=== PATIENT | male | born 1955 | race Caucasian/White ===

== ENCOUNTER → 2017-08-03 | Day surgery (SDC) | payer OTHER ==
[~2017-08-03] MED LIST: ASA81 MG PO; AZOR 10-40 MG1 EACH PO; BYSTOLIC20 MG PO; CALTRATE 600 +1 EACH PO; CIPRO500 MG PO; FISH OIL 1,0001 EAC4 PO; FORTAMET1000 MG PO; LANTUS SOL100 UNIT/1; LIPITOR20 MG PO; MULTI VITAMIN1 EACH PO; NEURONTIN600 MG PO; PERCOCET 5-3251 EACH PO; POLY119PG PO; SURFAK240 M1 PO
== END | disposition home or self-care (01) ==
LOC: ADM 07-25 10:15 → CIR.AMB 07:38
DX: K40.90 Unilateral inguinal hernia, without obstruction or gangrene, not specified as recurrent (principal); K42.9 Umbilical hernia without obstruction or gangrene; K43.9 Ventral hernia without obstruction or gangrene